=== PATIENT | male | born 1975 | race Two or more races ===

== ENCOUNTER 2023-05-01 15:52 | Emergency (ER) | payer OTHER ==
[~2023-05-01] VITALS: Ht 175.3 cm; Wt 80.0 kg
[2023-05-01] MEDS ORDERED: ONDANSETRON HCL 4 MG/2 ML VIAL IM ONE (17:00)
[2023-05-01] MEDS ORDERED: IPRATROPIUM BROM 0.5 MG/2.5ML INH SOL NEB ONE (17:00)
[2023-05-01] MEDS ORDERED: DexAMETHasone SOD PHOS 10MG/1ML VIAL INJ IM ONE (17:00)
[2023-05-01] MEDS ORDERED: HYDROcodone-ACET 10/325MG TAB PO ONE (17:00)
[2023-05-01] MEDS ORDERED: ALBUTEROL SULF 2.5 MG/0.5ML(0.5%) NEB SOLN NEB ONE (17:00)
[2023-05-01 17:12] LABS: Basophils # (auto) 0 10 ^3/uL (0-0.2); Basophils % (auto) 0.2 % (0.0-2.0); Eosinophils # (auto) 0 10 ^3/uL (0-0.8); Eosinophils % (auto) 0.1 % (0.0-7.0); Hematocrit 53.2 % (41.0-53.0); Hemoglobin 18.1 g/dL (13.5-17.5); Lymphocytes # (auto) 0.6 10 ^3/uL (0.4-5.4); Lymphocytes % (auto) 4.7 % (10.0-50.0); Mean Corpuscular Hgb Conc. 33.9 g/dL (32.0-36.0); Mean Corpuscular Volume 91.5 fL (80.0-100.0); Monocytes # (auto) 1.2 10 ^3/uL (0-1.3); Monocytes % (auto) 9.2 % (0.0-12.0); Neutrophils # (auto) 11.4 10 ^3/uL (1.6-8.6); Neutrophils % (auto) 85.8 % (37.0-80.0); Nucleated Red Blood Cells % 0.1 %; Red Blood Cells 5.82 10^6/uL (4.5-5.90); Red Cell Distribution Width 14.5 % (11.8-14.3); White Blood Cell 13.2 10^3/uL (4.4-10.8)
[2023-05-01] MEDS ORDERED: ALBUTEROL SULF 2.5 MG/0.5ML(0.5%) NEB SOLN ONE (17:36)
[2023-05-01] MEDS ORDERED: IPRATROPIUM BROM 0.5 MG/2.5ML INH SOL ONE (17:37)
[2023-05-01 17:42] LABS: Alanine Aminotransferase 14 U/L (7-40); Albumin 5.6 g/dL (3.2-4.8); Alkaline Phosphatase 61 U/L (46-116); Anion Gap 18 (5-15); Aspartate Aminotransferase 35 U/L (13-40); BUN/Creatinine Ratio 10.3 (10.0-20.0); Blood Urea Nitrogen 26 mg/dL (9-23); Calcium 9.9 mg/dL (8.7-10.4); Carbon Dioxide 16 mmol/L (20-30); Chloride 97 mmol/L (98-107); Glucose 139 mg/dL (74-106); Lipase 90 U/L (12-53); Potassium 3.9 mmol/L (3.5-5.1); Sodium 131 mmol/L (136-145)
[2023-05-01 17:43] LABS: Bilirubin, Total 0.7 mg/dL (0.2-1.0); Total Protein 9.2 g/dL (5.7-8.2)
[2023-05-01 17:50] LABS: Lactic Acid w/Reflex 3.4 mmol/L (0.4-2.0)
[2023-05-01] MEDS ORDERED: SODIUM CHLORIDE 0.9% 1,000 ML IV ONE ×2 (18:15→21:15)
[2023-05-01] MEDS ORDERED: VANCOMYCIN PER PHARMACY 0 MG IV SCH (18:30)
[2023-05-01] MEDS ORDERED: PIPERACILLIN-TAZOB 3.375GM 100 ML IV ONE ×2 (18:30→18:46)
[2023-05-01] MEDS ORDERED: DexAMETHasone SOD PHOS 10MG/1ML VIAL INJ ONE (18:45)
[2023-05-01] MEDS ORDERED: VANCOMYCIN 1GM/200ML 250 ML IV ONE ×2 (18:45→19:08)
[2023-05-01] MEDS ORDERED: ONDANSETRON HCL 4 MG/2 ML VIAL ONE (18:46)
[2023-05-01 19:15] VITALS: TEMP 98.3
[2023-05-01 19:51] LABS: Rapid Influenza B Negative (Negative)
[2023-05-01 19:53] LABS: COVID19 ANTIGEN SOFIA FIA NEGATIVE (NEGATIVE)
[2023-05-01 19:54] LABS: Rapid Influenza A Positive (Negative)
[2023-05-01 20:15] VITALS: PULSE 114; RESP 21; O2SAT 96
[2023-05-02 00:17] LABS: Urine Bacteria NONE SEEN /hpf (None Seen); Urine Blood 1+ /uL (Negative); Urine Clarity CLOUDY (Clear); Urine Protein, UAD TRACE (Negative); Urine Specific Gravity 1.016 (1.001-1.035); Urine Urobilinogen Normal (Negative); Urine WBC 1 /hpf (0 - 3); Urine pH 5.5 (5.0-8.0)
[2023-05-02 00:20] LABS: Urine Color Straw (Yellow)
[2023-05-02] MEDS ORDERED: OSELTAMIVIR 30 MG CAP PO ONE ×2 (03:15→05:05)
[2023-05-02] MEDS ORDERED: SODIUM CHLORIDE 0.9% 1,000 ML IV ONE (04:00)
[2023-05-02] MEDS ORDERED: TAMIF30 PO ×3 (04:34→04:54)
[2023-05-02] MEDS ORDERED: ALBUAER3 IN (04:34)
[2023-05-02] MEDS ORDERED: AZIT1POW12 PO (04:34)
[2023-05-02] MEDS ORDERED: DEXT30LI OR (04:34)
[2023-05-02] MEDS ORDERED: METH4PAK PO (04:34)
[2023-05-02 06:40] LABS: Anion Gap 10 (5-15); Carbon Dioxide 20 mmol/L (20-30); Chloride 106 mmol/L (98-107); Potassium 3.8 mmol/L (3.5-5.1); Sodium 136 mmol/L (136-145)
[2023-05-02 06:41] LABS: Calcium 8.5 mg/dL (8.7-10.4)
[2023-05-02 06:46] LABS: BUN/Creatinine Ratio 23.1 (10.0-20.0); Blood Urea Nitrogen 25 mg/dL (9-23); Glucose 128 mg/dL (74-106)
[2023-05-02 06:49] VITALS: BP 134/91; PULSE 73; RESP 20; O2SAT 98
== END 2023-05-02 08:02 | disposition home or self-care (01) ==
LOC: ER 15:52
DX: A41.9 Sepsis, unspecified organism (principal); J10.1 Influenza due to other identified influenza virus with other respiratory manifestations; D72.829 Elevated white blood cell count, unspecified; E87.1 Hypo-osmolality and hyponatremia; R74.02 Elevation of levels of lactic acid dehydrogenase [LDH]; R07.89 Other chest pain; Z88.8 Allergy status to other drugs, medicaments and biological substances; Z20.822 Contact with and (suspected) exposure to COVID-19
CPT/HCPCS: 36415; 71046; 74176; 80048; 80053; 80202; 81001; 83605; 83690; 83880; 85025; 87040; 87426; 87804; 93005; 94640; 96361; 96365; 96367; 96372; 99285; J1100; J2405; J2543; J3370; J7030; J7644; G9035

== ENCOUNTER 2023-05-09 08:24 | Emergency (ER) | payer OTHER ==
[~2023-05-09 08:24] MED LIST: ALBUAER3 IN; AZIT1POW12 PO; DEXT30LI OR; METH4PAK PO; TAMIF30 PO
[2023-05-09] MEDS ORDERED: SODIUM CHLORIDE 0.9% 2,000 ML IV ONE (08:45)
[2023-05-09] MEDS ORDERED: PIPERACILLIN-TAZO 4.5GM 100 ML IV ONE ×2 (09:00→13:00)
[2023-05-09 09:28] LABS: Hematocrit 44.8 % (41.0-53.0); Hemoglobin 14.9 g/dL (13.5-17.5); Mean Corpuscular Hemoglobin 30.3 pg (28.0-32.0); Mean Corpuscular Hgb Conc. 33.2 g/dL (32.0-36.0); Mean Corpuscular Volume 91.2 fL (80.0-100.0); Red Blood Cells 4.91 10^6/uL (4.5-5.90); White Blood Cell 17.3 10^3/uL (4.4-10.8)
[2023-05-09 09:36] LABS: Basophils % (manual) 0 (0.0-2.0); Blast Cells 0; Eosinophils % (manual) 0 (0-7); Metamyelocytes % 0; Myelocytes % 0; Promyelocytes % 0; Reactive Lymphocytes 0
[2023-05-09 09:48] LABS: INR 1.17 (0.9-1.15); Partial Thromboplastin Time 33.2 SEC (24.5-34.5); Prothrombin Time 12.2 sec (9.3-11.8)
[2023-05-09 09:52] LABS: Alanine Aminotransferase 22 U/L (7-40); Albumin 4.2 g/dL (3.2-4.8); Alkaline Phosphatase 62 U/L (46-116); Anion Gap 16 (5-15); Aspartate Aminotransferase 26 U/L (13-40); BUN/Creatinine Ratio 10.3 (10.0-20.0); Bilirubin, Total 0.8 mg/dL (0.2-1.0); Blood Urea Nitrogen 8 mg/dL (9-23); Carbon Dioxide 18 mmol/L (20-30); Chloride 100 mmol/L (98-107); Glucose 106 mg/dL (74-106); Sodium 134 mmol/L (136-145); Total Protein 7.2 g/dL (5.7-8.2)
[2023-05-09] MEDS ORDERED: VANCOMYCIN 1GM/200ML 200 ML IV ONE ×2 (10:00→13:00)
[2023-05-09 10:15] LABS: Magnesium 2.2 mg/dL (1.6-2.6)
[2023-05-09 11:55] LABS: COVID19 ANTIGEN SOFIA FIA NEGATIVE (NEGATIVE); Rapid Influenza A Negative (Negative); Rapid Influenza B Negative (Negative)
[2023-05-09 12:05] LABS: Band Neutrophils % (manual) 15; Lymphocytes % (manual) 7 (10.0-50.0); Monocytes % (manual) 5 (0-12)
[2023-05-09 12:06] LABS: Platelet Estimate Adequate
[2023-05-09 13:00] VITALS: PULSE 98; RESP 25; TEMP 98.2; O2SAT 93
[2023-05-09 13:09] LABS: Urine Bacteria NONE SEEN /hpf (None Seen); Urine Blood Negative /uL (Negative); Urine Clarity HAZY (Clear); Urine Color Yellow (Yellow); Urine Mucus FEW (None Seen); Urine Protein, UAD 1+ (Negative); Urine Specific Gravity 1.037 (1.001-1.035); Urine Urobilinogen Normal (Negative); Urine WBC 4 /hpf (0 - 3)
[2023-05-09] MEDS ORDERED: LEVO750T8 PO (13:41)
[2023-05-09] MEDS ORDERED: ALBUAER3 IN (13:41)
[2023-05-09 13:45] LABS: Base Excess -0.3 mmol/L (-2.0-2.0)
[2023-05-09 14:30] VITALS: BP 123/76; PULSE 99; RESP 25; O2SAT 94
== END 2023-05-09 15:03 | disposition home or self-care (01) ==
LOC: ER 08:24
DX: J18.9 Pneumonia, unspecified organism (principal); E86.0 Dehydration; R00.0 Tachycardia, unspecified; I10 Essential (primary) hypertension; Z20.822 Contact with and (suspected) exposure to COVID-19; Z98.890 Other specified postprocedural states; Z88.8 Allergy status to other drugs, medicaments and biological substances; Z79.899 Other long term (current) drug therapy
CPT/HCPCS: 36415; 36600; 71045; 80053; 81001; 82805; 83605; 83735; 83880; 84484; 85007; 85027; 85379; 85610; 85730; 87040; 87426; 87804; 93005; 96365; 96366; 96368; 99285; J2543; J3370